=== PATIENT | male | born 1980 | race Caucasian/White ===

== ENCOUNTER 2021-08-11 23:57 | Emergency (ER) | payer MEDICAID ==
[~2021-08-11] VITALS: Ht 190.5 cm; Wt 108.9 kg
[2021-08-12 00:05] VITALS: BP_SYST 142
[2021-08-12 03:06] LABS: BASOPHILS # (AUTO) 0.1 K/uL (0.0-0.2); HEMOGLOBIN 14.8 g/dL (14.0-18.0)
[2021-08-12 03:09] LABS: EOSINOPHILS # (AUTO) 0.4 K/uL (0.0-0.4); EOSINOPHILS % (AUTO) 3.9 % (0.0-4.0); HEMATOCRIT 42.4 % (36-54); LYMPHOCYTES # (AUTO) 2.8 K/uL (1.0-5.5); LYMPHOCYTES % (AUTO) 28.4 % (20.5-51.5); MEAN CORPUSCULAR HEMOGLOBIN 31 pg (27-31); MEAN CORPUSCULAR HGB CONC 35 % (32-36); MEAN CORPUSCULAR VOLUME 88 fL (79.0-98.0); MONOCYTES % (AUTO) 10.5 % (1.7-9.3); NEUTROPHILS # (AUTO) 5.4 K/uL (1.8-7.7); NEUTROPHILS % (AUTO) 56.2 % (40.0-70.0); PLATELET COUNT (AUTO) 255 K/uL (130-430); RED BLOOD CELL COUNT(AUTO) 4.84 MIL/uL (4.2-6.2); RED CELL DISTRIBUTION WIDTH 12.6 % (9.0-15.0); WHITE BLOOD COUNT (AUTO) 9.7 K/uL (4.8-10.8)
[2021-08-12 03:17] LABS: CALCIUM 8.4 mg/dL (8.4-11.0); CREATININE 1.14 mg/dL (0.55-1.30); POTASSIUM 3.7 mmol/L (3.5-5.1)
[2021-08-12 03:22] LABS: ALBUMIN 3.6 g/dL (3.4-4.8); TOTAL BILIRUBIN 1.2 mg/dL (0.0-1.0)
[2021-08-12 04:00] VITALS: BP_SYST 138
== END 2021-08-12 04:00 | disposition home or self-care (01) ==
LOC: SED 23:57
DX: D69.2 Other nonthrombocytopenic purpura (principal)
CPT/HCPCS: 36415; 80053; 85025; 99283